=== PATIENT | female | born 1945 | race Caucasian/White ===

== ENCOUNTER 2019-06-09 15:22 | Inpatient (IN) | payer MEDICARE, OTHER ==
[~2019-06-09] VITALS: Ht 152.4 cm; Wt 80.3 kg
--- NOTE | ~2019-06-09 | CON ---
[address] [address] CONSULTATION Name: ARMINFIOR Berg Room: [address] ADM IN M.R.#: [id number] Admission: 06/09/19 Attend Phys: Cecil Lin MD Discharge: Date of : 41 Report #: [id number] THIS REPORT FOR: //name// CC: Cecil Lin [facility] physician/PCP DATE OF SERVICE: 06/10/2019 HISTORY OF PRESENT ILLNESS: This is a 73-year-old female patient who is unable to provide any reliable history. I called the number of the daughter, which is in the computer, but I was not able to reach her. She does not know what is wrong with her. She was admitted with altered mental status. She had a recent hip surgery, but she is also on donepezil indicating that she probably has underlying dementia. She does not provide any history at all. How long this dementia is going on, whether anything makes it better or worse is unknown. REVIEW OF SYSTEMS: Positive for anemia, her hemoglobin is 6.8. She had a recent hip surgery. A 14-point review of system was attempted, but that is all we can get in this patient. She did have a chest x-ray, which demonstrated right lower lobe pneumonia. A 14-point review of system was attempted, but that is all I can get in this patient. PAST MEDICAL HISTORY: Unavailable, but looks like it is positive for dementia. FAMILY HISTORY: Unavailable. SOCIAL HISTORY: Apparently, she lives in a senior living. PHYSICAL EXAMINATION: GENERAL: Her examinations indicate that she is alert. NEUROLOGIC: She sometime can follow simple commands. She does not know what month it is, what hospital she is in. Cranial nerve examination and neuromuscular examination was attempted. I cannot tell for sure that examination, but it appeared to be her baseline. There is no meningeal sign. She did not cooperate with the fundus examination. CARDIOVASCULAR: She does appear to have some edema. NECK: She does not have any thyroid mass. VITAL SIGNS: Blood pressure is 145/65, respiration is 20, pulse is 98, and temperature is 98.6. LABORATORY DATA: Labs indicate a hemoglobin of only 6.8. IMAGING STUDIES: None of the imaging study was done. I do not know whether it has been done in the past or not. Cardiac and respiratory examinations appear unremarkable. There is no [place] [address] CONSULTATION Name: FIOR FUNEZ Room: [address] IN [facility]#: [id number] Admission: 06/09/19 Attend Phys: Cecil Lin MD Discharge: Date of : 41 Report #: [id number] IMPRESSION: Clinically, it would appear that this patient has underlying dementia. She developed encephalopathy on top of that. PLAN: We will try to contact the daughter again and see what we need to do in this patient and how aggressive they want to be. We will also try to find out how much workup was already done for dementia and how much we need to do. By: [id number] Alejandro Man MD /nt
--- NOTE | ~2019-06-09 | EEG ---
[address] [address] EEG STUDY REPORT Name: FIOR FUNEZ Room: [address] IN M.R.#: [id number] Admission: 06/09/19 Attend Phys: Cecil Lin MD Discharge: Date of : 41 Report #: [id number] THIS REPORT FOR: //name// CC: Cecil Lin [facility] physician/PCP DATE OF SERVICE: 06/10/2019 This patient is being evaluated for altered mental status. EEG was done by placing the electrode by standard 10-20 system of electrode placement. Both referential and sequential montages were used for recording. Background activity in this patient's EEG is about 9 Hz and 50 microvolts. The patient became drowsy that is associated with bilateral slowing. Photic stimulation is unremarkable. Throughout the record, no active epileptiform activity was noticed. IMPRESSION: This patient's EEG does not appear to be showing any definite abnormality. Thank you very much for this referral. By: [id number] Alejandro Man MD /nt
[2019-06-09] MEDS ORDERED: DONEPEZIL HCL10 M1 PO (15:24)
[2019-06-09] MEDS ORDERED: FAMOTIDINE 20 M20 MG PO (15:24)
[2019-06-09] MEDS ORDERED: TYLENOL325 MG PO (15:25)
[2019-06-09] MEDS ORDERED: MILK OF MA400 MG/5 M PO (15:25)
[2019-06-09] MEDS ORDERED: DULCOLAX STOOL100 M1 PO (15:25)
[2019-06-09 15:26] VITALS: BP 119/72
[2019-06-09] MEDS ORDERED: SLOW FE142 MG PO (15:26)
[2019-06-09] MEDS ORDERED: CARDIZEM CD 18180 M3 PO (15:26)
[2019-06-09] MEDS ORDERED: PERCOCET 5-3251 EACH PO (15:27)
[2019-06-09] MEDS ORDERED: MIRALAX119 GM PO (15:27)
[2019-06-09] MEDS ORDERED: CVS SENNA PLUS1 EACH PO (15:28)
[2019-06-09] MEDS ORDERED: METOPROLOL TART25 MG PO (15:29)
[2019-06-09] MEDS ORDERED: IPRAT-ALBUT 0.5-3 ML (15:29)
[2019-06-09 15:38] LABS: ABSOLUTE BASOPHILS 0.1 thou/uL (0.0-0.2); ABSOLUTE EOSINOPHILS 0.1 thou/uL (0.0-0.7); ABSOLUTE LYMPHOCYTES 1.2 thou/uL (0.8-5.3); ABSOLUTE MONOCYTES 0.6 thou/uL (0.0-1.2); ABSOLUTE NEUTROPHILS 9.4 thou/uL (1.6-8.1); BASOPHILS 0.9 %; EOSINOPHILS 0.8 %; HEMATOCRIT 26.6 % (37.0-47.0); HEMOGLOBIN 7.8 gm/dL (12.0-15.0); LYMPHOCYTES 10.9 %; MCH 19.8 pg (26.0-34.0); MCHC 29.3 g/dL (28.0-37.0); MCV 67.7 fL (80.0-100.0); MONOCYTES 5.3 %; MPV 8.5 fl. (7.2-11.1); NUCLEATED RBCS 0 /100WBC; PLATELET COUNT* 434 thou/uL (150-400); POLYS 82.1 %; RBC 3.94 mil/uL (4.20-5.00); RDW-CV 38.5 % (10.5-14.5); WBC 11.4 thou/uL (4.0-11.0)
[2019-06-09 15:47] LABS: CALCIUM 8.6 mg/dL (8.5-10.1); CREATININE 1.1 mg/dL (0.6-1.3); POTASSIUM 3.8 mmol/L (3.5-5.1)
[2019-06-09 15:49] LABS: APTT 29.1 Seconds (25.0-31.3); INR 1.4
[2019-06-09 15:58] LABS: ALBUMIN 2.3 g/dL (3.4-5.0); TOTAL BILIRUBIN 0.4 mg/dL (<0.1-1.0); TOTAL PROTEIN 5.3 g/dL (6.4-8.2)
[2019-06-09 17:01] LABS: ANISOCYTOSIS 3+; HYPOCHROMASIA 3+; OVALOCYTES 1+; TEARDROPS Occasional
[2019-06-09 17:02] LABS: PLATELET ESTIMATE ADEQUATE; SCHISTOCYTES 1+
[2019-06-09 17:03] LABS: MICROCYTES 3+; TARGET CELLS Occasional
[2019-06-09 19:53] VITALS: BP 117/54
[2019-06-09 20:15] VITALS: BP 123/70
[2019-06-10] VITALS (7 sets, daily range): BP systolic 111–145; BP diastolic 42–70
[2019-06-10 05:28] LABS: CALCIUM 8.5 mg/dL (8.5-10.1); POTASSIUM 3.8 mmol/L (3.5-5.1)
[2019-06-10 05:30] LABS: NUCLEATED RBCS 0 /100WBC
[2019-06-10 05:35] LABS: MCH 20.5 pg (26.0-34.0)
[2019-06-10 05:37] LABS: HEMATOCRIT 22.1 % (37.0-47.0); MCHC 30.7 g/dL (28.0-37.0); MCV 66.8 fL (80.0-100.0); MPV 8.5 fl. (7.2-11.1); PLATELET COUNT* 363 thou/uL (150-400); RBC 3.31 mil/uL (4.20-5.00); RDW-CV 38.3 % (10.5-14.5); WBC 6.4 thou/uL (4.0-11.0)
[2019-06-10 05:54] LABS: HEMOGLOBIN 6.8 gm/dL (12.0-15.0)
[2019-06-10 07:44] LABS: ABSOLUTE EOSINOPHILS 0.1 thou/uL (0.0-0.7); ABSOLUTE MONOCYTES 0.5 thou/uL (0.0-1.2); ABSOLUTE NEUTROPHILS 4.8 thou/uL (1.6-8.1); ANISOCYTOSIS 2+; PLATELET ESTIMATE ADEQUATE
--- NOTE | 2019-06-10 16:04 | EKG ---
[place] [address] ELECTROCARDIOGRAM REPORT Name: FIOR FUNEZ Room: [address] ADM IN M.R.#: [id number] Admission: 06/09/19 Attend Phys: Cecil Lin MD Discharge: Date of : 41 Report #: [id number] THIS REPORT FOR: //name// [facility] ED Test Date: 2019-06-09 Test Time: 16:05:02 Pat Name: FIOR FUNEZ Department: Room: [facility] Gender: F Hand Stitcher: [place] : 1945 Requested By: Epifanio Jha Order Number: [id number] MD: David Dickey Measurements Intervals [place] Rate: 96 P: SC: QRS: -52 QRSD: 94 T: QT: 339 QTc: 429 Interpretive Statements Atrial fibrillation Left anterior fascicular block Anterior infarct, age indeterminate Lateral leads are also involved No previous ECG available for comparison Electronically Signed On 06-10-2019 16:03:57 [employer] by David Dickey [email or web address] <ELECTRONICALLY SIGNED> By: David Dickey MD, [facility] 06/10/19 1603 1605 04 David Dickey MD, FACC /EPI
--- NOTE | 2019-06-10 16:15 | 2DMMODE ---
[place] [address] 2 D/M-MODE ECHOCARDIOGRAM Name: FIOR FNUEZ Room: [address] IN [facility]#: [id number] Admission: 06/09/19 Attend Phys: Cecil Lin, Discharge: Date of : 41 Date of Service: 06/10/19 1614 Report #: [id number] THIS REPORT FOR: //name// APPROVED REPORT Study performed: 06/10/2019 14:30:16 EXAM: Comprehensive 2D, Doppler, and color-flow Echocardiogram Patient Location: In-Patient Room #: 200 BSA: 1.76 HR: 88 bpm BP: 113/60 mmHg Other Information Study Quality: Fair Indications Congestive Heart Failure 2D Dimensions IVSd: 10.64 (7-11mm) LVOT Diam: 20.33 (18-24mm) LVDd: 43.25 mm PWd: 9.65 (7-11mm) Ascending Ao: 27.62 (22-36mm) LVDs: 25.04 (25-40mm) Aortic Root: 27.99 mm Volumes Left Atrial Volume (Systole) LA ESV Index: 38.90 mL/m2 Aortic Valve AoV Peak Augusto.: 1.41 m/s AO Peak Gr.: 7.97 mmHg LVOT Max P.07 mmHg AO Mean Gr.: 3.99 mmHg LVOT Mean P.88 mmHg LVOT Max V: 1.01 m/s AO V2 VTI: 24.28 cm LVOT Mean V: 0.63 m/s TUYET (VTI): 2.32 cm2 LVOT V1 VTI: 17.38 cm Mitral Valve MV Decel. Time: 144.30 ms MV PHT: 41.85 ms MVA (PHT): 5.26 cm2 [place] [address] 2 D/M-MODE ECHOCARDIOGRAM Name: ARMINROLANDAFIOR Room: [address] IN ..#: [id number] Admission: 06/09/19 Attend Phys: Cecil Lin, Discharge: Date of : 41 Date of Service: 06/10/19 1614 Report #: [id number] TDI Medial E' Augusto.: 0.08 m/s Lateral E' Augusto.: 0.14 m/s Pulmonary Valve PV Peak Augusto.: 0.79 m/s PV Peak Gr.: 2.51 mmHg Tricuspid Valve RAP Estimate: 5.00 mmHg TR Peak Gr.: 29.45 mmHg RVSP: 34.45 mmHg PA Pressure: 34.45 mmHg Left Ventricle The left ventricle is normal size. There is normal LV segmental wall motion. There is normal left ventricular wall thickness. Left ventricular systolic function is normal. LVEF is 60-65%. This study is not technically sufficient to allow evaluation of the LV diastolic function. Right Ventricle The right ventricle is normal size. The right ventricular systolic function is normal. Atria Left atrium is moderately dilated. Right atrium is mildly dilated. Aortic Valve The aortic valve is normal in structure. No aortic regurgitation is present. There is no aortic valvular stenosis. Mitral Valve Mild mitral annular calcification. Mild mitral regurgitation. No evidence of mitral valve stenosis. Tricuspid Valve The tricuspid valve is normal in structure. Mild tricuspid regurgitation. The RVSP is 35-40 mmHg. Pulmonic Valve The pulmonary valve is normal in structure. There is no pulmonic valvular regurgitation. Great Vessels The aortic root is normal in size. IVC is normal in size and collapses >50% [place] [address] 2 D/M-MODE ECHOCARDIOGRAM Name: FIOR FUNEZ Room: [address] IN [facility]#: [id number] Admission: 06/09/19 Attend Phys: Cecil Lin, Discharge: Date of : 41 Date of Service: 06/10/19 1614 Report #: [id number] Pericardium There is no pericardial effusion. Pleural effusion present <Conclusion> The left ventricle is normal size. There is normal left ventricular wall thickness. Left ventricular systolic function is normal. LVEF is 60-65%. This study is not technically sufficient to allow evaluation of the LV diastolic function. Left atrium is moderately dilated. Right atrium is mildly dilated. Mild mitral regurgitation. Mild tricuspid regurgitation. The RVSP is 35-40 mmHg. IVC is normal in size and collapses >50% with inspiration. <ELECTRONICALLY SIGNED> By: Kalyan Prieto MD, FACC 06/10/19 1614 1614 161 Kalyan Prieto MD, FACC /INF
[2019-06-11] VITALS: BP 128/46
[2019-06-11 04:00] VITALS: BP 117/59
[2019-06-11 04:33] LABS: ABSOLUTE BASOPHILS 0.1 thou/uL (0.0-0.2); ABSOLUTE EOSINOPHILS 0.2 thou/uL (0.0-0.7); ABSOLUTE LYMPHOCYTES 1.2 thou/uL (0.8-5.3); ABSOLUTE MONOCYTES 0.8 thou/uL (0.0-1.2); ABSOLUTE NEUTROPHILS 7.1 thou/uL (1.6-8.1); BASOPHILS 0.9 %; EOSINOPHILS 2.6 %; HEMATOCRIT 28.4 % (37.0-47.0); HEMOGLOBIN 8.8 gm/dL (12.0-15.0); LYMPHOCYTES 12.8 %; MCH 21.9 pg (26.0-34.0); MCHC 31.1 g/dL (28.0-37.0); MCV 70.2 fL (80.0-100.0); MONOCYTES 8.4 %; MPV 8.2 fl. (7.2-11.1); NUCLEATED RBCS 0 /100WBC; PLATELET COUNT* 365 thou/uL (150-400); POLYS 75.3 %; RBC 4.04 mil/uL (4.20-5.00); RDW-CV 36.5 % (10.5-14.5); WBC 9.5 thou/uL (4.0-11.0)
[2019-06-11 04:42] LABS: CALCIUM 8.1 mg/dL (8.5-10.1)
[2019-06-11 08:00] VITALS: BP 114/68
[2019-06-11 11:38] VITALS: BP 137/60
[2019-06-11 16:00] VITALS: BP 101/47
[2019-06-11 20:00] VITALS: BP 119/64
[2019-06-12] VITALS: BP 108/78
[2019-06-12 04:00] VITALS: BP 122/84
[2019-06-12 08:00] VITALS: BP 119/57
[2019-06-12 10:40] VITALS: BP 113/50
[2019-06-12 11:09] LABS: ABSOLUTE BASOPHILS 0.1 thou/uL (0.0-0.2); ABSOLUTE EOSINOPHILS 0.2 thou/uL (0.0-0.7); ABSOLUTE LYMPHOCYTES 0.6 thou/uL (0.8-5.3); ABSOLUTE MONOCYTES 0.7 thou/uL (0.0-1.2); ABSOLUTE NEUTROPHILS 6.5 thou/uL (1.6-8.1); BASOPHILS 0.8 %; EOSINOPHILS 2.8 %; HEMATOCRIT 28.2 % (37.0-47.0); HEMOGLOBIN 8.7 gm/dL (12.0-15.0); LYMPHOCYTES 7.4 %; MCH 21.9 pg (26.0-34.0); MCHC 30.7 g/dL (28.0-37.0); MCV 71.4 fL (80.0-100.0); MONOCYTES 8.9 %; MPV 8.5 fl. (7.2-11.1); NUCLEATED RBCS 0 /100WBC; PLATELET COUNT* 307 thou/uL (150-400); POLYS 80.1 %; RBC 3.95 mil/uL (4.20-5.00); RDW-CV 36.3 % (10.5-14.5); WBC 8.1 thou/uL (4.0-11.0)
[2019-06-12 16:23] VITALS: BP 116/69
--- NOTE | 2019-06-12 17:36 | CON ---
[address] [address] CONSULTATION Name: FIOR FUNEZ Room: [address] IN M.R.#: [id number] Admission: 06/09/19 Attend Phys: Cecil Lin MD Discharge: Date of : 41 Report #: [id number] THIS REPORT FOR: //name// CC: Cecil Lin [facility] physician/PCP DATE OF SERVICE: 06/11/2019 REASON FOR CONSULTATION: Colon cancer. SUBJECTIVE: A 73-year-old female who was diagnosed with dementia. She has been previously evaluated because of colon cancer; however, per the records, she declined resection. The patient was found to have anemia, which required blood transfusion. Her hemoglobin was 8.8 and platelet count was 364. No family was available today to discuss with the patient. The patient was awake. She does not remember talking to the surgeon previously. REVIEW OF SYSTEMS: Unable to be obtained due to her clinical condition. PAST MEDICAL HISTORY: GERD, iron deficiency, dementia, hypertension. PAST SURGICAL HISTORY: Hip surgery. MEDICATIONS: Per admission list. ALLERGIES: None known allergies. SOCIAL HISTORY: No smoking, no alcohol abuse, no drug abuse. FAMILY HISTORY: Noncontributory. PHYSICAL EXAMINATION: VITAL SIGNS: Today, temperature 36.7, pulse 89, respirations 22, blood pressure is 101/77 GENERAL: The patient was lying in bed. She was not in acute distress. LUNGS: Decreased breathing sounds bilaterally. No wheezing. No crackles. ABDOMEN: Soft, nontender, nondistended, bowel sounds positive. LABORATORY DATA: Today, WBC 9.5, hemoglobin 8.8, platelets 365. Creatinine is 1.0. Her ferritin is 24, saturation 6%, B12 is 386, folate 4.2. ASSESSMENT AND PLAN: A 73-year-old female who has been previously diagnosed with colon cancer. Currently, she is anemic. At this point, in terms of her anemia, I think the patients will benefit from iron infusion since she is requiring blood transfusion. Also, in terms of her surgical resection, I would like to have a discussion with the surgeon and [place] [address] CONSULTATION Name: FIOR FUNEZ Room: [address] ADM IN [facility]#: [id number] Admission: 06/09/19 Attend Phys: Cecil Lin MD Discharge: Date of : 41 Report #: [id number] need. I agree with recommendation of the surgery with laparoscopic right hemicolectomy if the patient and the family were agreeable. <ELECTRONICALLY SIGNED> By: Rani Valerio MD 06/12/19 1736 [id number] Valerio MD /nt
[2019-06-12 19:30] VITALS: BP 128/71
[2019-06-13] VITALS: BP 109/50
[2019-06-13 04:00] VITALS: BP 102/55
[2019-06-13 04:58] LABS: HEMATOCRIT 27.7 % (37.0-47.0); HEMOGLOBIN 8.5 gm/dL (12.0-15.0); MCH 21.9 pg (26.0-34.0); MCHC 30.7 g/dL (28.0-37.0); MCV 71.4 fL (80.0-100.0); RBC 3.88 mil/uL (4.20-5.00); RDW-CV 35.6 % (10.5-14.5); WBC 7.1 thou/uL (4.0-11.0)
[2019-06-13 05:04] LABS: CALCIUM 8.5 mg/dL (8.5-10.1); CREATININE 1.1 mg/dL (0.6-1.3); MAGNESIUM 2.2 mg/dL (1.8-2.4); POTASSIUM 3.9 mmol/L (3.5-5.1)
[2019-06-13 08:00] VITALS: BP 142/77
[2019-06-13 11:09] VITALS: BP 124/56
[2019-06-13 15:20] VITALS: BP 115/55
[2019-06-13 19:31] VITALS: BP 124/52
[2019-06-14 00:08] VITALS: BP 116/68
[2019-06-14 04:00] VITALS: BP 133/61
[2019-06-14 04:57] LABS: HEMATOCRIT 28.5 % (37.0-47.0); HEMOGLOBIN 8.8 gm/dL (12.0-15.0); MCH 22.3 pg (26.0-34.0); MCHC 30.9 g/dL (28.0-37.0); MPV 8.1 fl. (7.2-11.1); RBC 3.95 mil/uL (4.20-5.00); WBC 8.8 thou/uL (4.0-11.0)
[2019-06-14 05:10] LABS: CALCIUM 8.3 mg/dL (8.5-10.1); MAGNESIUM 1.9 mg/dL (1.8-2.4); POTASSIUM 3.5 mmol/L (3.5-5.1)
[2019-06-14 08:00] VITALS: BP 135/50
[2019-06-14 10:59] VITALS: BP 132/74
[2019-06-14 15:33] VITALS: BP 132/74
[2019-06-14] MEDS ORDERED: AUGMENTIN 875-1 EACH PO ×2 (15:58→15:59)
== END 2019-06-14 16:30 | disposition home or self-care (01) | DRG 177 ==
LOC: M.ERS 15:22 → M.2W 17:19 → M.TBA-ER 17:19 → M.2W 20:15
PROVIDERS: Family Medicine; Internal Medicine; Surgery; ADMIT Internal Medicine
PROC: 30233N1 Transfusion of Nonautologous Red Blood Cells into Peripheral Vein, Percutaneous Approach (ICD-10-PCS; principal; 2019-06-10)
DX: J69.0 Pneumonitis due to inhalation of food and vomit (principal); G93.41 Metabolic encephalopathy; K92.2 Gastrointestinal hemorrhage, unspecified; K56.699 Other intestinal obstruction unspecified as to partial versus complete obstruction; D62 Acute posthemorrhagic anemia; I10 Essential (primary) hypertension; D64.9 Anemia, unspecified; K21.9 Gastro-esophageal reflux disease without esophagitis; F03.90 Unspecified dementia, unspecified severity, without behavioral disturbance, psychotic disturbance, mood disturbance, and anxiety; N83.9 Noninflammatory disorder of ovary, fallopian tube and broad ligament, unspecified; Z96.649 Presence of unspecified artificial hip joint; Z87.81 Personal history of (healed) traumatic fracture; Z79.899 Other long term (current) drug therapy